=== PATIENT | female | born 1995 | race Two or more races ===

== ENCOUNTER 2024-03-06 10:37 | Observation (INO) | payer OTHER, SELFPAY ==
[2024-03-06 10:43] VITALS: BP 103/59; BMI 28.4
== END 2024-03-06 13:02 | disposition home or self-care (01) ==
LOC: LDRP 10:37
PROVIDERS: ADMITTING PHYSICIAN Obstetrics & Gynecology
DX: O47.03 False labor before 37 completed weeks of gestation, third trimester (principal); Z3A.36 36 weeks gestation of pregnancy
CPT/HCPCS: 76805; 87070

== ENCOUNTER 2024-03-26 08:25 | Inpatient (IN) | payer OTHER, SELFPAY ==
[2024-03-26] MEDS: LR 1000 IV (08:45)
[2024-03-26 08:51] VITALS: BP 116/67; BMI 29.3
[2024-03-26 09:12] LABS: % Basophils 0.3 % (0-2); % Eosinophils 0.3 % (0-6); % Immature Granulocytes 0.7 % (0-0.5); % Lymphocytes 16.3 % (20.5-51.1); % Monocytes 5.3 % (1.7-9.3); % Neutrophils 77.1 % (42.2-75.2); Absolute Immature Granulocytes 0.1 10^3/uL (0-0.05); Absolute Lymphocytes 1.9 10^3/uL (1.2-3.4); Absolute Monocytes 0.6 10^3/uL (0.1-0.6); Absolute Neutrophils 9.1 10^3/uL (1.4-6.5); Hemoglobin 12.3 g/dL (12.0-16.0); Mean Corp Hgb Conc. 34.2 g/dL (33.0-37.0); Mean Corpuscular Hgb 29.5 pg (27.0-31.0); Mean Corpuscular Volume 86.3 fL (81.0-99.0); Mean Platelet Volume 11.3 fL (7.4-10.4); Nucleated Red Blood Cells % 0 %; Platelet Count 205 10^3/uL (130-400); Red Blood Cell Count 4.17 10^6/uL (4.20-5.40); Red Cell Dist. Width 12.4 % (11.5-14.5); White Blood Cell Count 11.8 10^3/uL (4.8-10.8)
[2024-03-26] MEDS: PENICILLIN 110 UNITS IV (09:20)
[2024-03-26] MEDS: FENTANYL/BUPIVACAINE 100 EPIDURAL (10:07)
[2024-03-26] MEDS: SUBLIMAZE 100 MCG EPIDURAL (10:07)
[2024-03-26] MEDS: PENICILLIN 55 UNITS IV (12:36)
[2024-03-26] MEDS: TYLENOL 650 MG PO ×2 (16:32→20:57)
[2024-03-26] MEDS: MOTRIN 600 MG PO ×2 (16:32→22:33)
[2024-03-27] MEDS: TYLENOL 650 MG PO ×3 (02:02→11:43)
[2024-03-27] MEDS: MOTRIN 600 MG PO ×2 (04:37→08:19)
[2024-03-27 05:11] LABS: Hematocrit 32.4 % (37.0-47.0); Hemoglobin 10.8 g/dL (12.0-16.0)
[2024-03-27] MEDS: SENOKOT-S 1 TABLET PO (07:25)
[2024-03-29 13:18] LABS: Syphilis/T. pallidum Ab Reflex Negative (Negative)
== END 2024-03-27 14:58 | disposition home or self-care (01) | DRG 806 ==
LOC: LDRP 08:25
PROVIDERS: ADMITTING PHYSICIAN Obstetrics & Gynecology
PROC: 10E0XZZ Delivery of Products of Conception, External Approach (ICD-10-PCS; 2024-03-26)
DX: O34.219 Maternal care for unspecified type scar from previous cesarean delivery (principal); O98.32 Other infections with a predominantly sexual mode of transmission complicating childbirth; Z37.0 Single live birth; O99.354 Diseases of the nervous system complicating childbirth; O99.824 Streptococcus B carrier state complicating childbirth; Z3A.39 39 weeks gestation of pregnancy; A60.00 Herpesviral infection of urogenital system, unspecified; O71.82 Other specified trauma to perineum and vulva; G43.909 Migraine, unspecified, not intractable, without status migrainosus; O99.344 Other mental disorders complicating childbirth; F41.9 Anxiety disorder, unspecified; Z83.3 Family history of diabetes mellitus; Z82.49 Family history of ischemic heart disease and other diseases of the circulatory system; Z88.1 Allergy status to other antibiotic agents
CPT/HCPCS: 85014; 85018; 85025; 86780; 86850; 86900; 86901